=== PATIENT | female | born 1975 | race African-American/Black ===

== ENCOUNTER 2018-07-25 11:31 | Emergency (ER) | payer OTHER ==
[~2018-07-25] VITALS: Ht 167.6 cm; Wt 63.5 kg
[2018-07-25 11:44] VITALS: BP 103/82
[2018-07-25] MEDS ORDERED: ACETAMINOPHEN ES 500 MG TABLET PO ONE (12:30)
[2018-07-25] MEDS ORDERED: IBUPROFEN 600 MG TABLET PO ONE ×2 (12:30→12:36)
[2018-07-25] MEDS ORDERED: ACETAMINOPHEN ES 500 MG TABLET ONE (12:36)
--- NOTE | 2018-07-25 12:57 | NUR ---
Patient discharged to home in stable condition. Written and verbal after care instructions given. Patient verbalizes understanding of instruction.
== END 2018-07-25 12:57 | disposition home or self-care (01) ==
LOC: ER 11:37
DX: J11.1 Influenza due to unidentified influenza virus with other respiratory manifestations (principal); Z90.49 Acquired absence of other specified parts of digestive tract

== ENCOUNTER 2018-10-20 17:01 | Emergency (ER) | payer OTHER ==
[~2018-10-20] VITALS: Ht 165.1 cm; Wt 75.7 kg
[2018-10-20 17:14] VITALS: BP 115/80
== END 2018-10-20 17:25 | disposition home or self-care (01) ==
LOC: ER 17:02
DX: H11.32 Conjunctival hemorrhage, left eye (principal); Z90.49 Acquired absence of other specified parts of digestive tract
CPT/HCPCS: Z7502

== ENCOUNTER 2019-04-09 12:06 | Emergency (ER) | payer OTHER ==
[~2019-04-09] VITALS: Ht 170.2 cm; Wt 74.8 kg
[2019-04-09] MEDS ORDERED: ACETAMINOPHEN ES 500 MG TABLET ONE (12:48)
[2019-04-09] MEDS ORDERED: IBUPROFEN 400 MG TABLET ONE (12:48)
[2019-04-09] MEDS ORDERED: IBUPROFEN 400 MG TABLET PO ONE (13:00)
[2019-04-09] MEDS ORDERED: ACETAMINOPHEN ES 500 MG TABLET PO ONE (13:00)
--- NOTE | 2019-04-09 13:48 | NUR ---
RAPID INFLUENZA SWAB COLLECTED AND SENT TO LAB
--- NOTE | 2019-04-09 13:52 | NUR ---
Patient discharged to home in stable condition. Written and verbal after care instructions given. Written prescription provided to patient Patient verbalizes understanding of instruction.
[2019-04-09 13:53] VITALS: BP 116/67
== END 2019-04-09 14:05 | disposition home or self-care (01) ==
LOC: ER 12:08
DX: J10.1 Influenza due to other identified influenza virus with other respiratory manifestations (principal); Z90.49 Acquired absence of other specified parts of digestive tract